=== PATIENT | male | born 1995 | race Caucasian/White ===

== ENCOUNTER 2017-09-15 01:46 | Emergency (ER) | payer OTHER ==
[2017-09-15] MEDS ORDERED: ONDANSETRON DISINTEGRATING 4 MG TAB ONE (02:15)
[2017-09-15] MEDS ORDERED: ONDANSETRON DISINTEGRATING 4 MG TAB PO ONE (02:16)
--- NOTE | 2017-09-15 02:19 | EDPHY ---
H & P Stated Complaint: fall, chipped front tooth, does not remember fall Time Seen by Provider: 09/15/17 02:19 HPI/ROS: HPI CHIEF COMPLAINT: Alcohol Intoxication HISTORY OF PRESENT ILLNESS: Patient is a 22-year-old male, [employer] student, he endorses drinking a large amount of alcohol this evening. He states he had 8-10 shots. He had some point fell and hit his face. He checked the right front tooth. Denies any other areas of injury. Upon arrival to the emergency room is vomiting. I do not appreciate a significant other signs of trauma exam except facial trauma. Soft tissue swelling to the face, and a chipped front tooth. Patient is unsure exactly what happened. He does not recall the events. He denies assault. Denies any neck pain chest pain or shortness of breath. Past Medical History: No significant medical history Past Surgical History: No significant surgical history Social History: Endorses alcohol this evening. [employer] student. Family History: Noncontributory ROS REVIEW OF SYSTEMS: A comprehensive 10 point review of systems is otherwise negative aside from elements mentioned in the history of present illness. Exam Constitutional Intoxicated, triage nursing summary reviewed, vital signs reviewed, Sleepy, smells of alcohol Eyes normal conjunctivae and sclera, horizontal beating nystagmus consistent acute alcohol intoxication, otherwise pupils equal and react to light HENT oropharynx right front tooth is chipped., it is cracked long term up the tooth. Do not appreciate a nerve exposure. normal inspection, atraumatic, moist mucus membranes, no epistaxis, neck supple/ no meningismus, no raccoon eyes. Respiratory clear to auscultation bilaterally, normal breath sounds, no respiratory distress, no wheezing. Cardiovascular rate normal, regular rhythm, no murmur, no edema, distal pulses normal. Gastrointestinal soft, non-tender, no rebound, no guarding, normal bowel sounds, no distension, no pulsatile mass. Genitourinary no CVA tenderness. Musculoskeletal no midline vertebral tenderness, full range of motion, no calf swelling, no tenderness of extremities, no meningismus, good pulses, neurovascularly intact. Skin pink, warm, & dry, no rash, skin atraumatic. Neurologic sleepy, intoxicated with alcohol,, alert and oriented x 3, AAOx3, moves all 4 extremities equally, motor intact, sensory intact, CN II-XII intact , , normal vision, normal speech. Psychiatric normal mood/affect. Heme/Lymph/Immune no lymphadenopathy. Differential Diagnosis: Includes but is not limited to in a particular order acute alcohol intoxication, alcohol abuse, dehydration, electrolyte abnormality , nausea vomiting from acute alcohol intoxication Medical Decision Making: Plan for this patient due to he and active vomiting, IV establishment IV fluid bolus, IV Zofran 4 mg, CT scan head for trauma, check basic blood work including electrolytes, alcohol level. Monitor for worsening of condition or sobriety. Re-evaluation: CT scan head without contrast: Negative for acute traumatic injury. Called to me by Dr. Zhong. 0450AM: Serum alcohol 237. 0500: Waiting for patient to be more sober for safe discharge. 0549: Patient ambulated well throughout the emergency room is clinically sober. He has no complaints. Feels good and would like to be discharged with this to buddies at bedside. Recommend drinking lots of fluids today. Tylenol Motrin for pain control. Follow up with dentist. Source: Patient - Personal History Current Tetanus Diphtheria and Acellular Pertussis (TDAP): Yes - Medical/Surgical History Other PMH: denies - Social History Smoking Status: Never smoked Constitutional: Initial Vital Signs Temperature (C) 36.8 C 09/15/17 01:47 Heart Rate 76 09/15/17 01:47 Respiratory Rate 16 09/15/17 01:47 Blood Pressure 126/86 H 09/15/17 01:47 O2 Sat (%) 97 09/15/17 01:47 O2 Delivery Mode Room Air Allergies/Adverse Reactions: No Known Allergies Allergy (Unverified 09/15/17 01:47) Home Medications: Medication Instructions Recorded Otc Allergy Meds 09/15/17 Medical Decision Making - Data Points Laboratory Results: Laboratory Results 09/15/17 02:59 09/15/17 02:59 09/15/17 09/15/17 02:59 02:59 WBC 5.75 10^3/uL 10^3/uL (3.80-9.50) RBC 5.06 10^6/uL 10^6/uL (4.40-6.38) Hgb 16.7 g/dL g/dL (13.7-17.5) Hct 45.3 % % (40.0-51.0) MCV 89.5 fL fL (81.5-99.8) MCH 33.0 pg pg (27.9-34.1) MCHC 36.9 g/dL H g/dL (32.4-36.7) RDW 11.9 % % (11.5-15.2) Plt Count 270 10^3/uL 10^3/uL (150-400) MPV 9.2 fL fL (8.7-11.7) Neut % (Auto) 46.0 % % (39.3-74.2) Lymph % (Auto) 46.4 % H % (15.0-45.0) [place] % (Auto) 4.9 % % (4.5-13.0) Eos % (Auto) 1.7 % % (0.6-7.6) Baso % (Auto) 0.7 % % (0.3-1.7) Nucleat RBC Rel Count 0.0 % % (0.0-0.2) Absolute Neuts (auto) 2.64 10^3/uL 10^3/uL (1.70-6.50) Absolute Lymphs (auto) 2.67 10^3/uL 10^3/uL (1.00-3.00) Absolute Monos (auto) 0.28 10^3/uL L 10^3/uL (0.30-0.80) Absolute Eos (auto) 0.10 10^3/uL 10^3/uL (0.03-0.40) Absolute Basos (auto) 0.04 10^3/uL 10^3/uL (0.02-0.10) Absolute Nucleated RBC 0.00 10^3/uL 10^3/uL (0-0.01) Immature Gran % 0.3 % % (0.0-1.1) Immature Gran # 0.02 10^3/uL 10^3/uL (0.00-0.10) Sodium 147 mEq/L H mEq/L (135-145) Potassium 4.0 mEq/L mEq/L (3.5-5.2) Chloride 104 mEq/L mEq/L (97-110) Carbon Dioxide 24 mEq/l mEq/l (22-31) Anion Gap 19 mEq/L H mEq/L (8-16) BUN 13 mg/dL mg/dL (7-23) Creatinine 0.8 mg/dL mg/dL (0.7-1.3) Estimated GFR > 60 Glucose 114 mg/dL H mg/dL (70-100) Calcium 9.2 mg/dL mg/dL (8.5-10.4) Ethyl Alcohol 237 mg/dL H mg/dL (0-10) Medications Given: Discontinued Medications Sodium Chloride (Ns) 1,000 mls @ 0 mls/hr IV ONCE ONE PRN Reason: Wide Open Stop: 09/15/17 02:45 Last Admin: 09/15/17 03:16 Dose: 1,000 mls Ondansetron HCl (Zofran Odt) 4 mg PO EDNOW ONE Stop: 09/15/17 02:17 Last Admin: 09/15/17 02:17 Dose: 4 mg Departure - Departure Disposition: Home, Routine, Self-Care Clinical Impression: Alcohol intoxication Qualifiers: Complication of substance-induced condition: uncomplicated Qualified Code(s): F10.920 - Alcohol use, unspecified with intoxication, uncomplicated Condition: Good Instructions: Alcohol Intoxication (ED), Toothache (ED) Referrals: NONE *PRIMARY CARE P,. [Primary Care Provider] - As per Instructions [facility] [Outside] - As per Instructions [facility] [Outside] - As per Instructions
[2017-09-15] MEDS ORDERED: NS 1,000 ML IV ONE (02:44)
[2017-09-15 03:07] LABS: PLATELET COUNT 270 10^3/uL (150-400)
[2017-09-15 05:58] VITALS: BP 119/63
== END 2017-09-15 05:58 | disposition home or self-care (01) ==
DX: F10.920 Alcohol use, unspecified with intoxication, uncomplicated (principal); W01.198A Fall on same level from slipping, tripping and stumbling with subsequent striking against other object, initial encounter; Y99.8 Other external cause status; Y93.89 Activity, other specified
CPT/HCPCS: G0480